=== PATIENT | female | born 1965 | race Caucasian/White ===

== ENCOUNTER 2017-05-07 09:11 | Day surgery (SDC) | payer OTHER ==
[2017-05-07] MEDS ORDERED: Lactated Ringer's 1,000 ML IV ONE (09:39)
[2017-05-07] MEDS ORDERED: Midazolam 2 MG/2 ML VIAL ONE (10:55)
[2017-05-07] MEDS ORDERED: Propofol 10 mg/ml Inj (20 ML) ONE (10:56)
[2017-05-07 12:02] VITALS: BP 106/60; PULSE 85; RESP 14; TEMP 97; O2SAT 100
== END 2017-05-07 12:12 | disposition home or self-care (01) ==
LOC: H.ENDO 09:11
PROVIDERS: ATTEND Internal Medicine Gastroenterology
DX: Z12.11 Encounter for screening for malignant neoplasm of colon (principal); E78.5 Hyperlipidemia, unspecified; K64.8 Other hemorrhoids
CPT/HCPCS: 45378; J2250; J2704; J7120